=== PATIENT | male | born 1955 | race Asian ===

== ENCOUNTER → 2017-07-19 | Outpatient (CLI) | payer MEDICAID | END | disposition home or self-care (01) | LOC: XYW 09:54 | PROVIDERS: ATTEND Family Medicine | DX: I10 Essential (primary) hypertension (principal); I07.1 Rheumatic tricuspid insufficiency; I25.10 Atherosclerotic heart disease of native coronary artery without angina pectoris | CPT/HCPCS: 93306 ==